=== PATIENT | male | born 1965 | race Caucasian/White ===

== ENCOUNTER 2017-06-06 11:18 | Emergency (ER) | payer SELFPAY ==
[~2017-06-06] VITALS: Ht 177.8 cm; Wt 93.0 kg
[2017-06-06] MEDS ORDERED: [UNRECOGNIZED DRUG - CODE] MC (11:38)
[2017-06-06] MEDS ORDERED: ACET325T38 PO (11:38)
[2017-06-06] MEDS ORDERED: LIDOCAINE/EPI 2% 1:100,00 (XYLOCAINE) 20 ML VIAL INJ ONE (11:45)
[2017-06-06] MEDS ORDERED: CLINDAMYCIN 600 MG/4ML (CLEOCIN) VIAL IM ONE (11:45)
[2017-06-06] MEDS ORDERED: HYDROcodone/APAP 5 MG/325 MG (LORTAB) TAB PO ONE (11:45)
[2017-06-06] MEDS ORDERED: PENI500T PO (11:46)
[2017-06-06] MEDS ORDERED: HYDR-757 PO (11:46)
--- NOTE | 2017-06-06 11:46 | ED EENT ---
History of Present Illness General Chief Complaint: Dental Problems/Pain Stated Complaint: DENTAL ISSUES Nursing Triage Note: C/O L-TOOTH PAIN THAT STARTED ON TUESDAY OF LAST WEEK. Source: patient Exam Limitations: no limitations History of Present Illness Time seen by provider: 11:43 Initial Comments To ER with swelling and pain to the left maxilla that began about 10 days ago. No fevers or chills. Timing/Duration: abrupt Severity: moderate Location: mouth, dental Allergies and Home Medications Allergies Coded Allergies: No Known Drug Allergies (Unverified , 06/06/17) Home Medications Acetaminophen 325 Mg Tablet, 325 MG PO, (Reported) Hydrocodone/Acetaminophen 1 Each Tablet, 1 EACH PO Q4H PRN for PAIN-SEVERE TO BREAKTHROUGH, #14 Prescribed by: NATANAEL BAY on 06/06/17 1146 Ibuprofen 500 Gm Powder, 500 GM MC, (Reported) Penicillin V Potassium 500 Mg Tablet, 500 MG PO Q6H, #28 Prescribed by: NATANAEL BAY on 06/06/17 1146 Review of Systems Constitutional: see HPI, No chills, No fever Eyes: No Symptoms Reported, Decreased Acuity Nose: no symptoms reported Mouth: see HPI, pain, swelling Throat: no symptoms reported Respiratory: no symptoms reported Cardiovascular: no symptoms reported Past Lfiyxtx-Aazdix-Ghqrjl Hx Patient Social History Alcohol Use: Rarely Uses Recreational Drug Use: No Smoking Status: Current Everyday Smoker Type Used: Cigarettes Recent Foreign Travel: No Contact w/Someone Who Travel: No Recent Infectious Disease Expo: No Recent Hopitalizations: No Seasonal Allergies Seasonal Allergies: No Surgeries History of Surgeries: No Respiratory History of Respiratory Disorde: No Cardiovascular History of Cardiac Disorders: No Neurological History of Neurological Disord: Yes Neurological Disorders: Headaches /Migraines, Seizure Disorder Genitourinary History of Genitourinary Disor: No Musculoskeletal History of Musculoskeletal Dis: Yes Musculoskeletal Disorders: Degenerate Disk Disease Endocrine History of Endocrine Disorders: No HEENT History of HEENT Disorders: No Cancer History of Cancer: No Psychosocial History of Psychiatric Problem: No Integumentary History of Skin or Integumenta: No Blood Transfusions History of Blood Disorders: No Adverse Reaction to a Blood Tr: No Physical Exam Vital Signs Vital Sign - Last 12Hours 06/06/17 11:34 Temp 98.4 Pulse 93 Resp 20 B/P (MAP) 122/94 Pulse Ox 94 O2 Delivery Room Air General Appearance: WD/WN, no apparent distress Eyes: bilateral eye normal inspection, bilateral eye PERRL, bilateral eye EOMI Ears: bilateral ear auricle normal, bilateral ear canal normal, bilateral ear TM normal Mouth/Throat: other (tooth number 13 is decayed down into the gums. Just medial to tooth number 13 is a dime-sized area of fluctuance on the hard palate. ) Neck: non-tender, full range of motion Respiratory: chest non-tender, lungs clear, normal breath sounds Neurologic/Psychiatric: alert, normal mood/affect, oriented x 3 Skin: normal color, warm/dry I&D : Blade Size: 11 Progress Area of maximum fluctuance anesthetized with 1 mL of 2 percent lidocaine with epinephrine. 11 blade scalpel was then used to make a 0.5 cm incision. Moderate amount of purulent yellowish material was expressed. Progress/Results/Core Measures Results/Orders My Orders Orders - NATANAEL BAY APRN Clindamycin Injection (Cleocin Injection (06/06/17 11:45) Hydrocodone/Apap 5/325 Tablet (Lortab 5 (06/06/17 11:45) Lidocaine/Epi 2% 1:100,000 (Xylocaine/Ep (06/06/17 11:45) Ondansetron Oral Dissolve Tab (Zofran (06/06/17 11:55) Medications Given in ED Current Medications Medications Dose Ordered Sig/Riki Route Start Time Stop Time Status Last Admin Dose Admin Acetaminophen/ Hydrocodone Bitart 1 tab ONCE ONCE PO 06/06/17 11:45 06/06/17 11:46 DC 06/06/17 12:05 1 TAB Clindamycin Phosphate 600 mg ONCE ONCE IM 06/06/17 11:45 06/06/17 11:46 DC 06/06/17 11:58 600 MG Ondansetron HCl 4 mg STK-MED ONCE .ROUTE 06/06/17 11:55 06/06/17 12:05 DC 06/06/17 12:06 4 MG Vital Signs/I&O Vital Sign - Last 12Hours 06/06/17 11:34 Temp 98.4 Pulse 93 Resp 20 B/P (MAP) 122/94 Pulse Ox 94 O2 Delivery Room Air Blood Pressure Mean: 103 Departure Impression Impression: Primary Impression: Dental abscess Disposition: 01 HOME, SELF-CARE Condition: Stable Departure-Patient Inst. Decision time for Depature: 11:45 Referrals: NO,LOCAL PHYSICIAN (PCP/Family) Primary Care Physician Patient Instructions: Tooth Abscess (DC) Add. Discharge Instructions: 1. Rinse your mouth out with the mouthwash 3 times daily for the next 5 days. Follow-up with a dentist. If you do not have a dentist go to [facility] on and [address] [place] today to schedule an appointment to be seen as soon as possible. Take antibiotics as directed. All discharge instructions reviewed with patient and/or family. Voiced understanding. Scripts Chlorhexidine Gluconate (Peridex) 473 Ml Mouthwash 30 ML MM TID, #1 EA Prov: NATANAEL BAY APRN 06/06/17 Hydrocodone/Acetaminophen ([place] 5-325 Tablet) 1 Each Tablet 1 EACH PO Q4H Y for PAIN-SEVERE TO BREAKTHROUGH, #14 TAB Prov: NATANAEL BAY APRN 06/06/17 Penicillin V Potassium (Penicillin V Potassium) 500 Mg Tablet 500 MG PO Q6H, #28 TAB Prov: NATANAEL BAY APRN 06/06/17 Images Mouth/Nose 1 - Swelling 2 - Caries, Fracture Tooth NATANAEL BAY APRN Jun 06, 2017 11:46
[2017-06-06] MEDS ORDERED: ONDANSETRON 4 MG (ZOFRAN) ORAL DISSOLVE TAB ONE (11:55)
[2017-06-06] MEDS ORDERED: CHLO473M4 MM (12:14)
[2017-06-06 12:17] VITALS: BP 122/94
== END 2017-06-06 12:17 | disposition home or self-care (01) ==
LOC: ER 11:22
DX: K04.7 Periapical abscess without sinus (principal); G43.909 Migraine, unspecified, not intractable, without status migrainosus; G40.909 Epilepsy, unspecified, not intractable, without status epilepticus; F17.210 Nicotine dependence, cigarettes, uncomplicated
CPT/HCPCS: 96372; 99284